=== PATIENT | female | born 1960 | race Two or more races ===

== ENCOUNTER 2024-05-03 23:53 | Emergency (ER) | payer MEDICAID, OTHER ==
[~2024-05-03] VITALS: Ht 162.6 cm; Wt 84.3 kg
[2024-05-04] MEDS: cloNIDine HCL 0.1 MG TAB PO ONE (00:28)
[2024-05-04 01:35] VITALS: RESP 16; O2SAT 99
[2024-05-04] MEDS: amLODIPine BESYLATE 5 MG TAB PO ONE (01:40)
[2024-05-04] MEDS: SODIUM CHLORIDE 0.9% 1,000 ML IV ONE (01:55)
[2024-05-04] MEDS: CLINDAMYCIN 600MG IV 50 ML IV ONE (01:55)
[2024-05-04 02:21] LABS: Basophils # (auto) 0.1 10 ^3/uL (0-0.2); Eosinophils # (auto) 0 10 ^3/uL (0-0.8); Eosinophils % (auto) 0.6 % (0.0-7.0); Hematocrit 39.4 % (36.0-46.0); Hemoglobin 13.3 g/dL (12.2-16.2); Lymphocytes # (auto) 1.6 10 ^3/uL (0.4-5.4); Lymphocytes % (auto) 28.1 % (10.0-50.0); Mean Corpuscular Hemoglobin 27.6 pg (28.0-32.0); Mean Corpuscular Hgb Conc. 33.7 g/dL (32.0-36.0); Monocytes # (auto) 0.3 10 ^3/uL (0-1.3); Monocytes % (auto) 5.7 % (0.0-12.0); Neutrophils # (auto) 3.8 10 ^3/uL (1.6-8.6); Neutrophils % (auto) 64.6 % (37.0-80.0); Nucleated Red Blood Cells % 0.3 %; Platelet Count (auto) 113 10^3/uL (140-450); Red Blood Cells 4.81 10^6/uL (4.0-5.20); Red Cell Distribution Width 16.1 % (11.8-14.3); White Blood Cell 5.8 10^3/uL (4.4-10.8)
[2024-05-04 02:33] LABS: Chloride 110 mmol/L (98-107); Potassium 3.7 mmol/L (3.5-5.1); Sodium 140 mmol/L (136-145)
[2024-05-04 02:34] LABS: Anion Gap 8 (5-15); Calcium 9.3 mg/dL (8.7-10.4); Carbon Dioxide 22 mmol/L (20-31)
[2024-05-04 02:39] LABS: BUN/Creatinine Ratio 16.1 (10.0-20.0); Blood Urea Nitrogen 14 mg/dL (9-23); Glucose 157 mg/dL (74-106)
[2024-05-04] MEDS: HYDROcodone-ACET 10/325MG TAB PO ONE (04:08)
[2024-05-04] MEDS: LORazepam 2MG/ML-1ML VIAL IV ONE (04:21)
[2024-05-04] MEDS: LABETALOL HCL 20 MG/4 ML VL IV ONE (05:09)
[2024-05-04] MEDS: ONDANSETRON HCL 4 MG/2 ML VIAL IV ONE (05:10)
[2024-05-04 06:28] VITALS: BP 153/77; PULSE 63; RESP 16; TEMP 98.6; O2SAT 96
== END 2024-05-04 06:51 | disposition short-term general hospital (02) ==
LOC: ER 23:53
DX: T63.301A Toxic effect of unspecified spider venom, accidental (unintentional), initial encounter (principal); I16.1 Hypertensive emergency; E78.5 Hyperlipidemia, unspecified; E03.9 Hypothyroidism, unspecified; X58.XXXA Exposure to other specified factors, initial encounter; Y93.89 Activity, other specified; Y92.89 Other specified places as the place of occurrence of the external cause; Y99.8 Other external cause status
CPT/HCPCS: 36415; 80048; 82550; 85025; 96365; 96375; 99285; J2405; J3490; J7030